=== PATIENT | female | born 1950 | race African-American/Black ===

== ENCOUNTER → 2017-03-18 | Outpatient (CLI) | payer MEDICARE, MEDICAID ==
[~2017-03-18] MED LIST: AMLO5TAB4 PO; CALCIUM; FISH OIL; HYDR12.529 PO; LISI-604 PO; POTASSIUM 8 MEQ; SIMV10TA6 PO
== END | disposition home or self-care (01) ==
LOC: US 07:24
PROVIDERS: ATTEND Surgery
DX: K80.20 Calculus of gallbladder without cholecystitis without obstruction (principal); N28.1 Cyst of kidney, acquired; K76.0 Fatty (change of) liver, not elsewhere classified
CPT/HCPCS: 74181; 76705

== ENCOUNTER 2017-05-09 08:52 | Emergency (ER) | payer MEDICARE, MEDICAID ==
[~2017-05-09] VITALS: Ht 167.6 cm; Wt 67.0 kg
[2017-05-09] MEDS ORDERED: SODIUM CHLORIDE 0.9% 1,000 ML IV ONE (10:01)
[2017-05-09] MEDS ORDERED: MORPHINE SULFATE 4 MG/ML CPJ (NOT FOR IM USE) IV STA (10:01)
[2017-05-09] MEDS ORDERED: ONDANSETRON HCL 4MG/2ML VIAL IV STA (10:01)
[2017-05-09 10:20] LABS: BASOPHILS % 0.8 % (0.0-2.0); EOSINOPHILS % 0.8 % (0.0-5.0); HEMATOCRIT. 40.6 % (36.0-48.0); HEMOGLOBIN. 13.5 g/dL (12.0-16.0); LYMPHOCYTES % 20.6 % (20.0-50.0); MEAN CORPUSCULAR HEMOGLOBIN 29.5 pg (28.0-32.0); MONOCYTES % 7.3 % (2.0-8.0); NEUTROPHILS % 70.5 % (40.0-76.0); PLATELET 231 x1000/uL (130-400); RED BLOOD CELL COUNT 4.57 mill/uL (4.2-5.4); RED CELL DISTRIBUTION WIDTH 13.9 % (11.6-14.6)
[2017-05-09 10:26] LABS: PROTHROMBIN TIME 10.2 sec (9.4-11.6)
[2017-05-09 10:37] LABS: CARBON DIOXIDE 28 mEq/L (21-32); CHLORIDE 107 mEq/L (98-107)
[2017-05-09] MEDS ORDERED: MORPHINE SULFATE 2 MG/ML CPJ (NOT FOR IM USE) IV NR (10:45)
[2017-05-09 11:18] LABS: CLARITY URINE CLEAR (CLEAR); COLOR URINE YELLOW (YELLOW); GLUCOSE URINE NEGATIVE (NEGATIVE); KETONES URINE NEGATIVE (NEGATIVE); LEUKOCYTE ESTERASE URINE NEGATIVE (NEGATIVE); NITRITE URINE NEGATIVE (NEGATIVE); OCCULT BLOOD URINE NEGATIVE (NEGATIVE); PROTEIN URINE NEGATIVE (NEGATIVE); UROBILINOGEN URINE 0.2 E.U./dL (0.2-1.0)
[2017-05-09 13:13] VITALS: BP 118/60
== END 2017-05-09 13:41 | disposition home or self-care (01) ==
LOC: ER 09:09
DX: R10.11 Right upper quadrant pain (principal); E11.9 Type 2 diabetes mellitus without complications; I10 Essential (primary) hypertension
CPT/HCPCS: 36415; 76705; 80053; 81003; 83690; 85025; 85610; 96361; 96374; 96375; 99285; J2270; J2405; J7030

== ENCOUNTER 2017-08-26 12:04 | Emergency (ER) | payer MEDICARE, MEDICAID ==
[~2017-08-26] VITALS: Ht 160 cm; Wt 68.0 kg
[2017-08-26] MEDS ORDERED: ACETAMINOPHEN 325MG TABLET PO STA (18:08)
[2017-08-26] MEDS ORDERED: SODIUM CHLORIDE 0.9% 1,000 ML IV ONE (18:15)
[2017-08-26 18:29] LABS: CLARITY URINE CLEAR (CLEAR); COLOR URINE YELLOW (YELLOW); KETONES URINE NEGATIVE (NEGATIVE); LEUKOCYTE ESTERASE URINE NEGATIVE (NEGATIVE); NITRITE URINE NEGATIVE (NEGATIVE); OCCULT BLOOD URINE NEGATIVE (NEGATIVE); PH URINE 6.5 (4.5-8.0); PROTEIN URINE NEGATIVE (NEGATIVE); SPECIFIC GRAVITY URINE 1.018 (1.005-1.030); UROBILINOGEN URINE 0.2 E.U./dL (0.2-1.0)
[2017-08-26 18:57] LABS: BASOPHILS % 0.7 % (0.0-2.0); EOSINOPHILS % 2.3 % (0.0-5.0); HEMATOCRIT. 41.6 % (36.0-48.0); HEMOGLOBIN. 13.6 g/dL (12.0-16.0); LYMPHOCYTES % 35.6 % (20.0-50.0); MEAN CORPUSCULAR HEMOGLOBIN 29.4 pg (28.0-32.0); MEAN CORPUSCULAR VOLUME 90.1 fL (81.0-99.0); MEAN PLATELET VOLUME 7.1 fl (7.4-10.4); MONOCYTES % 9.9 % (2.0-8.0); NEUTROPHILS % 51.5 % (40.0-76.0); PLATELET 220 x1000/uL (130-400); RED BLOOD CELL COUNT 4.61 mill/uL (4.2-5.4); RED CELL DISTRIBUTION WIDTH 13.7 % (11.6-14.6)
[2017-08-26 18:58] LABS: CHLORIDE 108 mEq/L (98-107)
[2017-08-26 18:59] LABS: PROTHROMBIN TIME 10.3 sec (9.4-11.6)
[2017-08-26] MEDS ORDERED: KETOROLAC 30MG/ML VIAL IV ONE (19:15)
[2017-08-26 19:40] VITALS: BP 139/85
== END 2017-08-26 21:03 | disposition home or self-care (01) ==
LOC: ER 14:52
DX: J32.8 Other chronic sinusitis (principal); I10 Essential (primary) hypertension; E11.9 Type 2 diabetes mellitus without complications; Z86.61 Personal history of infections of the central nervous system; Z90.49 Acquired absence of other specified parts of digestive tract; Z90.710 Acquired absence of both cervix and uterus; Z90.89 Acquired absence of other organs
CPT/HCPCS: 36415; 71045; 80053; 81003; 83605; 85025; 85610; 87040; 87086; 87804; 93005; 96361; 96374; 99285; J1885; J7030

== ENCOUNTER → 2017-09-10 | Outpatient (CLI) | payer MEDICARE, MEDICAID | END | disposition home or self-care (01) | LOC: US 09:43 | PROVIDERS: ATTEND Ophthalmology | DX: Z12.31 Encounter for screening mammogram for malignant neoplasm of breast (principal); G31.89 Other specified degenerative diseases of nervous system; E04.2 Nontoxic multinodular goiter; R90.82 White matter disease, unspecified | CPT/HCPCS: 70551; 76536; 77067 ==

== ENCOUNTER 2018-08-30 10:31 | Emergency (ER) | payer MEDICAID, MEDICARE ==
[~2018-08-30] VITALS: Ht 167.6 cm; Wt 73.0 kg
[2018-08-30] MEDS ORDERED: SODIUM CHLORIDE 0.9% 1,000 ML IV ONE (16:37)
[2018-08-30] MEDS ORDERED: KETOROLAC 30MG/ML VIAL IV STA (16:37)
[2018-08-30 17:10] LABS: BASOPHILS % 0.5 % (0.0-2.0); EOSINOPHILS % 0.2 % (0.0-5.0); HEMATOCRIT. 47.3 % (36.0-48.0); HEMOGLOBIN. 15.6 g/dL (12.0-16.0); LYMPHOCYTES % 8.7 % (20.0-50.0); MEAN CORPUSCULAR HEMOGLOBIN 30.5 pg (28.0-32.0); MEAN CORPUSCULAR VOLUME 92.3 fL (81.0-99.0); MONOCYTES % 7.4 % (2.0-8.0); NEUTROPHILS % 83.2 % (40.0-76.0); PLATELET 257 x1000/uL (130-400); RED BLOOD CELL COUNT 5.12 mill/uL (4.2-5.4); RED CELL DISTRIBUTION WIDTH 15.5 % (11.6-14.6)
[2018-08-30 17:15] LABS: CHLORIDE 104 mEq/L (98-107)
[2018-08-30 18:50] VITALS: BP 135/86
== END 2018-08-30 19:53 | disposition home or self-care (01) ==
LOC: ER 10:31
DX: R06.02 Shortness of breath (principal); R05 Cough; R07.89 Other chest pain; I12.9 Hypertensive chronic kidney disease with stage 1 through stage 4 chronic kidney disease, or unspecified chronic kidney disease; H92.09 Otalgia, unspecified ear; R00.0 Tachycardia, unspecified; E11.22 Type 2 diabetes mellitus with diabetic chronic kidney disease; N18.9 Chronic kidney disease, unspecified; M32.9 Systemic lupus erythematosus, unspecified
CPT/HCPCS: 36415; 71045; 80053; 84484; 85025; 93005; 96374; 99284; J1885; J7030